=== PATIENT | female | born 1945 | race Caucasian/White ===

== ENCOUNTER → 2021-08-06 | Outpatient (CLI) | payer MEDICARE | END | disposition home or self-care (01) | LOC: US 13:00 | PROVIDERS: ATTEND Physician Assistant | DX: M51.26 Other intervertebral disc displacement, lumbar region (principal); M48.07 Spinal stenosis, lumbosacral region; J44.9 Chronic obstructive pulmonary disease, unspecified; M79.604 Pain in right leg; M79.605 Pain in left leg; R09.89 Other specified symptoms and signs involving the circulatory and respiratory systems ==

== ENCOUNTER → 2021-08-27 | Outpatient (CLI) | payer MEDICARE | END | disposition home or self-care (01) | LOC: RAD 11:52 | PROVIDERS: ATTEND Physician Assistant | DX: M79.605 Pain in left leg (principal) ==

== ENCOUNTER → 2022-10-16 | Outpatient (CLI) | payer MEDICARE | END | disposition home or self-care (01) | LOC: RESCLI 01:56 | PROVIDERS: ATTEND Student in an Organized Health Care Education/Training Program | DX: I48.0 Paroxysmal atrial fibrillation (principal); I65.22 Occlusion and stenosis of left carotid artery; I63.9 Cerebral infarction, unspecified; I10 Essential (primary) hypertension; Z88.0 Allergy status to penicillin; F17.210 Nicotine dependence, cigarettes, uncomplicated; F10.90 Alcohol use, unspecified, uncomplicated; Z98.890 Other specified postprocedural states; Z79.01 Long term (current) use of anticoagulants; Z79.899 Other long term (current) drug therapy ==

== ENCOUNTER → 2023-03-19 | Day surgery (SDC) | payer MEDICARE ==
[~2023-03-19] VITALS: Ht 157.4 cm; Wt 62.6 kg
[~2023-03-19] MED LIST: CELEXA20 MG PO; ELIQUIS2.5 M1 PO; LIPITOR40 MG PO; NEURONTIN300 MG PO; NORVASC5 MG PO; PREDNISONE5 MG PO; PROVENTIL HFA6.7 GM INH; XANAX0.25 MG PO
[2023-03-19 11:54] VITALS: BP 115/53
[2023-03-19 14:14] VITALS: BP 123/70
[2023-03-19 14:29] VITALS: BP 125/71
[2023-03-19 14:44] VITALS: BP 102/68
== END ==
LOC: CANSCHSDC → SDC 01-20 11:00
PROVIDERS: ATTEND Ophthalmology
DX: H25.811 Combined forms of age-related cataract, right eye (principal); I10 Essential (primary) hypertension; I48.91 Unspecified atrial fibrillation; E78.00 Pure hypercholesterolemia, unspecified; F41.9 Anxiety disorder, unspecified; Z87.891 Personal history of nicotine dependence; Z90.710 Acquired absence of both cervix and uterus; Z98.890 Other specified postprocedural states; Z88.0 Allergy status to penicillin

== ENCOUNTER → 2023-04-23 | Day surgery (SDC) | payer MEDICARE ==
[~2023-04-23] VITALS: Ht 157.4 cm; Wt 59.9 kg
[2023-04-23 10:18] VITALS: BP 140/76
[2023-04-23 11:40] VITALS: BP 133/50
[2023-04-23 11:55] VITALS: BP 133/70
[2023-04-23 12:06] VITALS: BP 135/59
== END ==
LOC: SDC 04-18 15:30
PROVIDERS: ATTEND Ophthalmology
DX: H25.812 Combined forms of age-related cataract, left eye (principal); I11.9 Hypertensive heart disease without heart failure; J45.909 Unspecified asthma, uncomplicated; I48.91 Unspecified atrial fibrillation; F41.9 Anxiety disorder, unspecified; Z86.16 Personal history of COVID-19; Z87.891 Personal history of nicotine dependence; Z79.899 Other long term (current) drug therapy; Z98.890 Other specified postprocedural states; Z88.0 Allergy status to penicillin; Z88.8 Allergy status to other drugs, medicaments and biological substances

== ENCOUNTER → 2023-11-13 | Outpatient (CLI) | payer MEDICARE | END | disposition home or self-care (01) | LOC: RESCLI 14:14 | PROVIDERS: ATTEND Family Medicine | DX: I25.10 Atherosclerotic heart disease of native coronary artery without angina pectoris (principal); I48.0 Paroxysmal atrial fibrillation; I63.9 Cerebral infarction, unspecified; J44.9 Chronic obstructive pulmonary disease, unspecified; F41.9 Anxiety disorder, unspecified; E78.5 Hyperlipidemia, unspecified; Z88.0 Allergy status to penicillin; Z98.890 Other specified postprocedural states; Z90.710 Acquired absence of both cervix and uterus; Z79.899 Other long term (current) drug therapy ==

== ENCOUNTER → 2023-11-14 | Outpatient (CLI) | payer MEDICARE | END | disposition home or self-care (01) | LOC: CT 00:52 | PROVIDERS: ATTEND Physician Assistant | DX: J43.2 Centrilobular emphysema (principal); F17.211 Nicotine dependence, cigarettes, in remission; I25.10 Atherosclerotic heart disease of native coronary artery without angina pectoris; I72.8 Aneurysm of other specified arteries; J98.4 Other disorders of lung; R91.8 Other nonspecific abnormal finding of lung field ==

== ENCOUNTER → 2024-10-21 | Outpatient (CLI) | payer MEDICARE | END | disposition home or self-care (01) | LOC: RAD 16:38 | PROVIDERS: ATTEND Physician Assistant | DX: M47.817 Spondylosis without myelopathy or radiculopathy, lumbosacral region (principal); M25.572 Pain in left ankle and joints of left foot; M51.26 Other intervertebral disc displacement, lumbar region; M77.32 Calcaneal spur, left foot ==

== ENCOUNTER → 2024-11-12 | Outpatient (CLI) | payer MEDICARE ==
[~2024-11-12] MED LIST changes: +IOHEXOL 300 MG/ML 100 ML VIAL IV ONE; +IOHEXOL 300 MG/ML 100 ML VIAL ONE
== END | disposition home or self-care (01) ==
LOC: MRI 08:01
PROVIDERS: ATTEND Physician Assistant
DX: J43.9 Emphysema, unspecified (principal); M48.56XA Collapsed vertebra, not elsewhere classified, lumbar region, initial encounter for fracture; M47.817 Spondylosis without myelopathy or radiculopathy, lumbosacral region; M48.07 Spinal stenosis, lumbosacral region; R91.8 Other nonspecific abnormal finding of lung field; M54.9 Dorsalgia, unspecified; I71.21 Aneurysm of the ascending aorta, without rupture; I25.10 Atherosclerotic heart disease of native coronary artery without angina pectoris; M47.814 Spondylosis without myelopathy or radiculopathy, thoracic region; N28.1 Cyst of kidney, acquired

== ENCOUNTER → 2024-11-29 | Outpatient (CLI) | payer MEDICARE ==
[~2024-11-29] MED LIST changes: -IOHEXOL 300 MG/ML 100 ML VIAL IV ONE; -IOHEXOL 300 MG/ML 100 ML VIAL ONE
== END | disposition home or self-care (01) ==
LOC: RAD 11-19 02:29
PROVIDERS: ATTEND Physician Assistant
DX: Z13.820 Encounter for screening for osteoporosis (principal); M85.80 Other specified disorders of bone density and structure, unspecified site; M81.0 Age-related osteoporosis without current pathological fracture; Z78.0 Asymptomatic menopausal state

== ENCOUNTER → 2024-12-08 | Outpatient (CLI) | payer MEDICARE ==
[~2024-12-08] MED LIST changes: +DENOSUMAB 60 MG/ML SYRINGE SC ONE
[2024-12-08 11:29] VITALS: BP 106/51
== END | disposition home or self-care (01) ==
LOC: INJECTION 10:45
PROVIDERS: ATTEND Physician Assistant
DX: M81.0 Age-related osteoporosis without current pathological fracture (principal); I10 Essential (primary) hypertension; F41.9 Anxiety disorder, unspecified; I48.91 Unspecified atrial fibrillation; Z87.891 Personal history of nicotine dependence

== ENCOUNTER 2025-01-29 17:18 | Emergency (ER) | payer MEDICARE ==
[~2025-01-29] VITALS: Wt 62.6 kg
[~2025-01-29 17:18] MED LIST changes: -DENOSUMAB 60 MG/ML SYRINGE SC ONE
[2025-01-29] MEDS ORDERED: ELIQUIS2.5 M1 PO (17:58)
[2025-01-29] MEDS ORDERED: APIXABAN 2.5 MG TABLET PO ONE (18:00)
== END 2025-01-29 18:11 | disposition home or self-care (01) ==
LOC: ED 17:18
DX: I48.91 Unspecified atrial fibrillation (principal); Z76.0 Encounter for issue of repeat prescription; Z88.0 Allergy status to penicillin; Z79.899 Other long term (current) drug therapy; Z90.711 Acquired absence of uterus with remaining cervical stump; Z87.442 Personal history of urinary calculi; Z87.891 Personal history of nicotine dependence

== ENCOUNTER 2025-07-22 17:26 | Inpatient (IN) | payer MEDICARE ==
[~2025-07-22] VITALS: Ht 157.4 cm; Wt 60.8 kg
[2025-07-22 17:36] VITALS: BP 127/54
[2025-07-22] MEDS ORDERED: Dicyclomine Hydrochloride 20 MG/10 ML OSYR PO STA (17:48)
[2025-07-22] MEDS ORDERED: MG-AL HYDROXIDE/SIMETICONE 30 ML UDC PO STA (17:48)
[2025-07-22] MEDS ORDERED: SODIUM CHLORIDE 0.9% 1,000 ML IV ONE (17:50)
[2025-07-22] MEDS ORDERED: IOHEXOL 300 MG/ML 100 ML VIAL IV ONE (17:55)
[2025-07-22 18:03] LABS: BASO # 0.1 10*3/uL (0.0-0.1); BASO % 1.1 % (0.0-1.0); EOS # 0.1 10*3/uL (0.0-0.4); EOS % 1.8 % (1.0-4.0); MEAN CELL VOLUME 74.7 fl (81.0-99.0); MEAN CORPUSCULAR HGB 20.9 pg (27.0-31.0); MEAN PLATELET VOLUME 9.0 fl (9.6-12.3); MONO # 0.7 10*3/uL (0.1-1.0); MONO % 9.0 % (3.0-9.0); NEUT # 5.5 10*3/uL (2.3-7.9); NEUT % 72.6 % (47.0-73.0); NUCLEATED RED BLOOD CELL 0.0 % (0.0-0.0); NUCLEATED RED BLOOD CELL 0.0 10*3/uL (0.0-0.0); PLATELET COUNT AUTOMATED 443 10*3/uL (130-400); RED CELL DISTRI WIDTH 17.6 % (0-14.5)
[2025-07-22 18:36] LABS: BUN 13 mg/dl (9-23); SGPT/ALT 11 U/L (5-49)
[2025-07-22] MEDS ORDERED: HYDROCODONE-AC1 EAC1 PO (20:23)
[2025-07-22] MEDS ORDERED: ASPIRIN ADULT L81 M1 PO (20:24)
[2025-07-22] MEDS ORDERED: METOPROLOL SUCC25 M2 PO (20:24)
[2025-07-22] MEDS ORDERED: Acetaminophen/Hydrocodone 5 MG/325 MG TABLET PO ONE (20:25)
[2025-07-22] MEDS ORDERED: Lactated Ringer's Solution 1,000 ML IV ONE (20:45)
[2025-07-22] MEDS ORDERED: Ondansetron Hydrochloride 4 MG/2 ML VIAL IV PRN (20:50)
[2025-07-22] MEDS ORDERED: SUCRALFATE 1 GM TAB PO ONE (20:50)
[2025-07-22 21:30] VITALS: BP 121/83
[2025-07-23] VITALS (13 sets, daily range): BP systolic 106–150; BP diastolic 50–80
[2025-07-23 01:35] LABS: BILIRUBIN Negative (Negative); BLOOD Negative (Negative); CLARITY Clear (Clear); COLOR Yellow (Yellow); KETONE Negative (Negative); LEUKO ESTERASE Negative (Negative); NITRITE Negative (Negative); PH 5.0 (4.5-8.0); SPECIFIC GRAVITY >= 1.030 (1.001-1.030); UROBILINOGEN 0.2 E.U./dl (0.0-1.0)
[2025-07-23 01:57] LABS: BACTERIA 1+
[2025-07-23 05:10] LABS: BUN 9 mg/dl (9-23); SGPT/ALT 8 U/L (5-49)
[2025-07-23 06:07] LABS: MEAN CELL VOLUME 74.0 fl (81.0-99.0); MEAN CORPUSCULAR HGB 20.7 pg (27.0-31.0); MEAN PLATELET VOLUME 10.3 fl (9.6-12.3); NUCLEATED RED BLOOD CELL 0.0 % (0.0-0.0); NUCLEATED RED BLOOD CELL 0.0 10*3/uL (0.0-0.0); PLATELET COUNT AUTOMATED 452 10*3/uL (130-400); RED CELL DISTRI WIDTH 17.8 % (0-14.5)
[2025-07-23 06:11] LABS: MANUAL DIFF REFLEX YES
[2025-07-23 06:51] LABS: BASOPHILS 1 % (0-1)
[2025-07-23 06:53] LABS: PLATELET SUFFICIENCY HIGH (NORMAL)
[2025-07-23] MEDS ORDERED: SODIUM CHLORIDE 0.9% 500 ML IV SCH (08:05)
[2025-07-23] MEDS ORDERED: Acetaminophen/Hydrocodone 5 MG/325 MG TABLET PO PRN (14:10)
[2025-07-23 14:50] LABS: BASO # 0.1 10*3/uL (0.0-0.1); BASO % 0.9 % (0.0-1.0); EOS # 0.2 10*3/uL (0.0-0.4); EOS % 2.4 % (1.0-4.0); MEAN CELL VOLUME 76.5 fl (81.0-99.0); MEAN CORPUSCULAR HGB 22.6 pg (27.0-31.0); MEAN PLATELET VOLUME 9.4 fl (9.6-12.3); MONO # 0.9 10*3/uL (0.1-1.0); MONO % 12.9 % (3.0-9.0); NEUT # 4.4 10*3/uL (2.3-7.9); NEUT % 65.3 % (47.0-73.0); NUCLEATED RED BLOOD CELL 0.0 % (0.0-0.0); NUCLEATED RED BLOOD CELL 0.0 10*3/uL (0.0-0.0); PLATELET COUNT AUTOMATED 400 10*3/uL (130-400); RED CELL DISTRI WIDTH 19.3 % (0-14.5)
[2025-07-23] MEDS ORDERED: METOPROLOL SUCCINATE XR 25 MG TAB PO SCH (22:00)
[2025-07-24] VITALS: BP 139/59
[2025-07-24 06:17] LABS: BASO # 0.1 10*3/uL (0.0-0.1); BASO % 1.2 % (0.0-1.0); EOS # 0.3 10*3/uL (0.0-0.4); EOS % 4.5 % (1.0-4.0); MEAN CELL VOLUME 75.7 fl (81.0-99.0); MEAN CORPUSCULAR HGB 22.1 pg (27.0-31.0); MEAN PLATELET VOLUME 10.0 fl (9.6-12.3); MONO # 0.9 10*3/uL (0.1-1.0); MONO % 12.7 % (3.0-9.0); NEUT # 3.7 10*3/uL (2.3-7.9); NEUT % 55.0 % (47.0-73.0); NUCLEATED RED BLOOD CELL 0.0 % (0.0-0.0); NUCLEATED RED BLOOD CELL 0.0 10*3/uL (0.0-0.0); PLATELET COUNT AUTOMATED 402 10*3/uL (130-400); RED CELL DISTRI WIDTH 18.9 % (0-14.5)
[2025-07-24 06:38] LABS: BUN 6 mg/dl (9-23)
[2025-07-24 08:00] VITALS: BP 119/59
[2025-07-24] MEDS ORDERED: ATORVASTATIN CALCIUM 40 MG TABLET PO SCH (10:00)
[2025-07-24] MEDS ORDERED: CITALOPRAM 20 MG TAB PO SCH (10:00)
[2025-07-24 12:00] VITALS: BP 103/45
[2025-07-24 16:00] VITALS: BP 131/58
[2025-07-24 20:00] VITALS: BP 147/63
[2025-07-24] MEDS ORDERED: Acetaminophen/Hydrocodone 5 MG/325 MG TABLET PO PRN (21:44)
[2025-07-25] VITALS (7 sets, daily range): BP systolic 126–147; BP diastolic 52–66
[2025-07-25 06:30] LABS: BASO # 0.1 10*3/uL (0.0-0.1); BASO % 1.1 % (0.0-1.0); EOS # 0.3 10*3/uL (0.0-0.4); EOS % 4.5 % (1.0-4.0); MEAN CELL VOLUME 77.0 fl (81.0-99.0); MEAN CORPUSCULAR HGB 22.0 pg (27.0-31.0); MEAN PLATELET VOLUME 10.2 fl (9.6-12.3); MONO # 0.8 10*3/uL (0.1-1.0); MONO % 11.5 % (3.0-9.0); NEUT # 3.8 10*3/uL (2.3-7.9); NEUT % 53.6 % (47.0-73.0); NUCLEATED RED BLOOD CELL 0.0 % (0.0-0.0); NUCLEATED RED BLOOD CELL 0.0 10*3/uL (0.0-0.0); PLATELET COUNT AUTOMATED 404 10*3/uL (130-400); RED CELL DISTRI WIDTH 19.4 % (0-14.5)
[2025-07-25 06:56] LABS: BUN 8 mg/dl (9-23)
[2025-07-25] MEDS ORDERED: Lactated Ringer's Solution 500 ML IV ONE (09:35)
[2025-07-25] MEDS ORDERED: ASPIRIN ADULT L81 M1 PO (12:55)
[2025-07-25] MEDS ORDERED: Carafate1 GM/10 ML PO (12:55)
[2025-07-25] MEDS ORDERED: PROTONIX40 MG PO (12:55)
[2025-07-25] MEDS ORDERED: PROPOFOL 200 MG/20 ML VIAL IV ONE (15:52)
[2025-07-25] MEDS ORDERED: Lidocaine Hydrochloride 2% 5 ML SDV IV ONE (15:52)
== END 2025-07-25 14:37 | disposition home or self-care (01) | DRG 392 ==
LOC: ED 17:26 → 4E 20:33 → EDHOLD 20:33 → ICCU 22:41 → 4E 07-23 15:32
PROVIDERS: Nurse Practitioner Family; Student in an Organized Health Care Education/Training Program; ADMIT Family Medicine; ATTEND Family Medicine
PROC: 30233N1 Transfusion of Nonautologous Red Blood Cells into Peripheral Vein, Percutaneous Approach (ICD-10-PCS; 2025-07-23)
PROC: 0DJ08ZZ Inspection of Upper Intestinal Tract, Via Natural or Artificial Opening Endoscopic (ICD-10-PCS; principal; 2025-07-25)
DX: K29.00 Acute gastritis without bleeding (principal); E44.0 Moderate protein-calorie malnutrition; D50.9 Iron deficiency anemia, unspecified; J44.9 Chronic obstructive pulmonary disease, unspecified; I10 Essential (primary) hypertension; F41.9 Anxiety disorder, unspecified; E78.00 Pure hypercholesterolemia, unspecified; R73.9 Hyperglycemia, unspecified; D75.839 Thrombocytosis, unspecified; I71.40 Abdominal aortic aneurysm, without rupture, unspecified; I48.91 Unspecified atrial fibrillation; Z90.710 Acquired absence of both cervix and uterus; Z79.01 Long term (current) use of anticoagulants; Z80.9 Family history of malignant neoplasm, unspecified; Z68.24 Body mass index [BMI] 24.0-24.9, adult; K29.80 Duodenitis without bleeding